=== PATIENT | male | born 1960 | race African-American/Black ===

== ENCOUNTER 2025-01-03 21:19 | Emergency (ER) | payer OTHER ==
[~2025-01-03] VITALS: Ht 185.4 cm; Wt 70.0 kg
[2025-01-03 21:28] VITALS: BP 118/76; PULSE 82; RESP 16; TEMP 36.8; O2SAT 96
[2025-01-03] MEDS: IBUPROFEN 800MG TABLET PO ONE (22:07)
[2025-01-03 22:38] LABS: BASOPHILS % 0.7 % (0.0-2.0); EOSINOPHILS % 2.4 % (0.0-5.0); HEMATOCRIT. 39.5 % (42.0-52.0); HEMOGLOBIN. 13.0 g/dL (14.0-18.0); LYMPHOCYTES % 27.8 % (20.0-50.0); MEAN PLATELET VOLUME 8.7 fl (7.4-10.4); MONOCYTES % 8.6 % (2.0-8.0); NEUTROPHILS % 60.5 % (40.0-76.0); PLATELET 236 x1000/uL (130-400); RED BLOOD CELL COUNT 4.39 mill/uL (4.7-6.1); RED CELL DISTRIBUTION WIDTH 12.9 % (11.6-14.6)
[2025-01-03 22:50] LABS: CREATININE 0.8 mg/dL (0.6-1.3)
[2025-01-03 22:51] LABS: UREA NITROGEN BLOOD 5 mg/dL (9-23)
[2025-01-03 22:52] LABS: ASPARTATE AMINOTRANSFERASE 25 IU/L (<34); TROPONIN I HIGH SENSITIVITY < 4 ng/L (3.0-53)
[2025-01-03 22:53] LABS: BILIRUBIN DIRECT 0.1 mg/dL (<=3.0); BILIRUBIN TOTAL 0.4 mg/dL (0.1-1.0); PROTEIN TOTAL 6.9 g/dL (6.0-8.3)
== END 2025-01-03 23:42 | disposition home or self-care (01) ==
LOC: ER 21:27 → CMPBEDREQ 01-04 08:03
DX: F10.129 Alcohol abuse with intoxication, unspecified (principal); R51.9 Headache, unspecified; Z79.899 Other long term (current) drug therapy; Y90.9 Presence of alcohol in blood, level not specified
CPT/HCPCS: 36415; 71045; 72170; 80048; 80076; 80320; 83735; 83880; 84484; 85025; 93005; 99285; G0480